=== PATIENT | female | born 1970 | race Caucasian/White ===

== ENCOUNTER 2017-04-20 11:22 | Observation (INO) | payer OTHER ==
[2017-04-20] MEDS ORDERED: Orphenadrine Citrate IV* 30 MG/ML 2 ML VIAL IV ONE (11:54)
[2017-04-20] MEDS ORDERED: Diazepam SYRINGE* 5 MG/ML SYRINGE IV ONE (11:54)
[2017-04-20] MEDS ORDERED: Morphine INJ* 4 MG/ML 1 ML SYRINGE IV ONE (11:54)
[2017-04-20] MEDS ORDERED: Ketorolac INJ* 30 MG/ML 1 ML VIAL IV PUSH ONE (11:54)
[2017-04-20 13:20] LABS: Hematocrit 37 % (35-47); Hemoglobin 12.2 g/dl (12.0-16.0); Mean Corpuscular HGB Conc 34 g/dl (31-36); Mean Corpuscular Hemoglobin 31 pg (27-31); Mean Corpuscular Volume 91 fL (80-97); Mean Platelet Volume 8 um3 (7.4-10.4); Red Blood Count 4.01 10^6/ul (4.0-5.4); Red Cell Distribution Width 13 % (10.5-15); White Blood Count 9.1 10^3/ul (3.5-10.8)
[2017-04-20 13:32] LABS: Albumin 3.5 g/dL (3.2-5.2); BUN/Creatinine Ratio 14.5 (8-20); Calcium 8.6 mg/dL (8.6-10.3); EGFR African American 104.9 (>60); EGFR Non-African American 81.6 (>60); Globulin 2.7 g/dL (2-4); Potassium 3.9 mmol/L (3.5-5.0); Total Bilirubin 0.4 mg/dL (0.2-1.0); Total Protein 6.2 g/dL (6.4-8.9)
--- NOTE | 2017-04-20 13:57 | RAD ---
INDICATION: Back pain COMPARISON: February 16, 2017 TECHNIQUE: AP supine and crosstable lateral imaging submitted . FINDINGS: Bones: There are no acute bony findings. There are there is minor endplate sclerosis and marginal osteophyte formation at the lower 3 lumbar levels. Alignment: Normal Disc spaces: The disc spaces are well-maintained Soft tissues: There are no soft tissue abnormalities. IMPRESSION: MINOR OSTEOARTHRITIC CHANGE.
[2017-04-20] MEDS ORDERED: Dexamethasone IV* 4 MG/ML 1 ML (4 MG) IV SLOW PU ONE (14:21)
[2017-04-20] MEDS: fentaNYL* 50 MCG/ML 2 ML VIAL (100 MCG VIAL) IV SLOW PU PRN ×2 (14:30→16:47)
[2017-04-20 15:02] LABS: C Reactive Protein 7.65 mg/L (< 5.00)
[2017-04-20 17:21] LABS: Urine Bacteria 1+ (Absent); Urine Bilirubin Negative (Negative); Urine Glucose 1+(50 mg/dL) (Negative); Urine Nitrite Negative (Negative)
[2017-04-20] MEDS ORDERED: Acetaminophen TAB* 325 MG PO PRN (17:59)
[2017-04-20] MEDS ORDERED: Dextrose 50% Syringe 50 ML* 25 GM/50 ML SYRINGE IV PUSH PRN (17:59)
[2017-04-20] MEDS ORDERED: Morphine INJ* 4 MG/ML 1 ML SYRINGE IV PRN (17:59)
[2017-04-20] MEDS ORDERED: Ondansetron INJ* 2 MG/ML VIAL IV PRN (17:59)
[2017-04-20] MEDS ORDERED: Dexamethasone IV* 4 MG in NS 0.9% 50 ML* 50 ML IVPB SCH (18:00)
[2017-04-20] MEDS ORDERED: Lidocaine PATCH 5%* 1 PATCH TRANSDERM SCH (18:00)
[2017-04-20] MEDS ORDERED: Albuterol HFA INHALER* 8 gm MDI INH PRN (18:02)
[2017-04-20] MEDS: fentaNYL PATCH 25 MCG/HR TRANSDERM SCH (20:12)
[2017-04-20] MEDS: Dexamethasone IV* 4 MG/ML 1 ML (4 MG) IV SLOW PU SCH (20:15)
[2017-04-20] MEDS ORDERED: Lidocaine Patch REMOVE* 1 NOTE MISC SCH (21:00)
--- NOTE | 2017-04-20 21:18 | HP ---
CC: Dr. Dc; Dr. Reyes * HISTORY AND PHYSICAL: DATE OF ADMISSION: 04/20/17 PRIMARY CARE PROVIDER: Dr. Dc. ATTENDING PHYSICIAN WHILE IN THE HOSPITAL: Dr. Mercedes Baxter * (report dictated by Darnell Cloud NP). CHIEF COMPLAINT: Back pain. HISTORY OF PRESENT ILLNESS: Ms. Lopez is a 46-year-old female patient, carries a history of chronic back pain, diabetes, obesity, hyperlipidemia, asthma, and SELINA. She comes in today with complaints of back discomfort. She says that since October, she has been dealing with back pain off and on. She has no trauma to the back that she knows of. She says that she was able to bear the pain through November and December with [id number] medication. Unfortunately, though, she relocated here to the area, was having knee and back pain, sought care with Dr. Reyes who got her into the pain clinic, who they were going to do epidurals when her sugar has been under control. She had an MRI last month; it did show some protrusion at L4-L5. She, in February and March, has been seeing a physical therapist, a chiropractor, and had been doing quite well until today. She got up, she had no pain this morning. She went to bend down to belt picker a bagful with two binders and she is not sure if she twisted wrong but suddenly when she went to go stand up, she felt worsening back pain mostly on the left side, left lower back that radiated down her buttocks to the posterior aspect of her legs. Described it as a burning, sharp, stabbing pain. She could not stand up because any type of movement, which has caused her back and muscles to spasm. She was able to get the attention of her , and when she came into the hospital, despite rounds of IV medications, steroids , antispasmodics, and muscle relaxants, the patient did continue to have significant amount of pain. Any type of movement, she had worsening pain. She denied any weakness to the lower extremities. She denied any numbness with the exception, she does have numbness in her left toes that has been a chronic sensation from an ankle surgery several years ago. There has been no change in that. She has had no reports of weakness or loss of bowel or bladder problems. She says that she has not had any trauma to the spine or to the back. She came in, the pain management was attempted. She actually initially sought care with Dr. Reyes because she was having knee pain on the same side and Dr. Reyes actually had been helping trying to get her set up for appropriate care with her back. Despite the pain now being controlled, the hospitalist service is asked to evaluate. She denied having any chest pain. No shortness of breath. No fever, chills, or any nausea or vomiting. PAST MEDICAL HISTORY: Significant for: 1. Chronic back pain. 2. Diabetes. 3. Obesity. 4. Hyperlipidemia. 5. Asthma. 6. SELINA. PAST SURGICAL HISTORY: She has had: 1. Ankle surgery. 2. Hysterectomy. MEDICATIONS: Home meds according to the list we are able to obtain includes: 1. Zocor 10 mg daily. 2. Nystatin cream 1 application topically b.i.d. 3. Naproxen 500 mg p.o. b.i.d. as needed. 4. Joint Support 1 capsule p.o. daily. 5. Metformin 1000 mg p.o. twice a day. 6. Magnesium 300 mg p.o. daily. 7. Levemir 50 units subcu b.i.d. 8. NovoLog 7 units subcu before meals. 9. Ibuprofen 200 mg every 4 hours as needed. 10. Vitamin D 400 units p.o. daily. 11. Albuterol 2 puffs inhaled every 4 hours as needed. ALLERGIES TO MEDICATIONS: Include TAPE, CIPRO, and SULFA. FAMILY HISTORY: Her mother had a history of diabetes. Father's history reviewed and noncontributory. SOCIAL HISTORY: She does not smoke, does not drink. Surrogate decision maker is her . REVIEW OF SYSTEMS: There is no documented fever. She denies having any significant weight change. There was no double vision. She denies having any ear discharge. There is no rhinorrhea. She denies having any sore throat. There is no thyroid enlargement. She denied having any chest pain. There is no orthopnea, there is no nocturnal dyspnea. There is no abdominal pain. There is no nausea, no vomiting. There is no dysuria, there is no frequency. No seizure, no loss of consciousness. No pruritus and no skin ulcerations. Review of 14 systems completed, all others negative. PHYSICAL EXAMINATION GENERAL: At this time, Ms. Lopez is a 46-year-old female patient, she is morbidly obese, sitting in the ER stretcher. She does not appear to be in any acute distress. VITAL SIGNS: Reveal blood pressure 128/69, pulse of 60, respirations 18, O2 sat of 100%, temperature 98.4. HEENT: Head is atraumatic and normocephalic. Eyes: EOMs are intact. Sclerae are anicteric and not pale. Throat: Oral mucosa appears to be moist. No oropharyngeal erythema. NECK: Supple. LUNGS: Clear to auscultation bilaterally. No wheezes or rhonchi. HEART: Sounds S1, S2. Regular rate and rhythm. No murmurs, rubs, or gallops. ABDOMEN: Soft, flat, nontender. Bowel sounds present. EXTREMITIES: Pulses were 2+ throughout. She has limited range of motion of the left lower extremity. She has got a positive straight leg test at that extremity about 10 degrees, but she does have 5/5 strength. With dorsi and plantar flexion at the knees, she has 5/5 strength. She also with flexion at the hip has 5/5 strength, but I cannot push the leg down, she is able to resist me, but it does cause her pain when she has resistance into her back. NEUROLOGIC: She is awake, alert, and oriented x3. She has sensation to bilateral lower extremities and she has no numbness or tingling with the exception to the left toes. She again had good plantar and dorsiflexion bilaterally. Good strength bilaterally as well into the lower extremities about 5/5, but there was a positive straight leg test at 10 degrees. No gross focal deficits. SKIN: Her skin was grossly intact. DIAGNOSTIC STUDIES/LAB DATA: Today revealed WBC 9.1, RBC of 4.01, hemoglobin 12.2, hematocrit 37, platelet count 216. Sodium was 136, potassium was 3.9, chloride of 105, bicarb 23, BUN 11, creatinine 0.76, glucose of 218, lactate 1.6 , calcium 8.6. Total bili 0.4, AST 11, ALT 13, alk phos 69. Her albumin was 3.5. Urine showed 2+ leukocyte esterase, 2+ wbc's, 1+ bacteria. She did have a lumbar spine x-ray obtained today, which revealed minor osteoarthritic change. There was a lumbar spine MRI done on the 19 of February which revealed, at the L4- L5, there is a small left paracentral broad disk protrusion indenting the left ventral thecal sac with mild facet hypertrophy, this may just abut the left descending nerve root at this level. Minimal spondylotic ridges noted with minimal left posterolateral disk protrusion, which indents the epidural fat at L5-S1. Old medical records were reviewed. ASSESSMENT AND PLAN: Ms. Lopez is a 46-year-old female patient coming into the ER today with complaints of back pain. Despite pain measures in the ER, the pain is uncontrolled, we were asked to evaluate. She will be admitted under inpatient status for: 1. Lumbar radiculopathy. At this point, there are no focal neurological findings and the problem is that she has mild disk herniation at L4-L5. I think at this point, I am going to go ahead and just put her on steroids. We will follow the sugars closely. Tomorrow, we can try to touch base with our pain management people either Dr. Stafford or Dr. Post to see if they could consult and possibly do an epidural injection. Dr. Reyes has been contacted by the ER, who will evaluate the patient tomorrow and I will repeat the MRI tomorrow morning as it has been 2 months to make sure there has been not any changes. At this point, because there are no focal neurological findings, we are just dealing with radiculopathy. I am going to wait before we get in touch with Neurosurgery unless she has any new symptoms. We will get the MRI and touch base with them tomorrow. I will put her on steroids. I have ordered fentanyl, Lidoderm, p.r.n. Percocet and morphine for pain control, and I have ordered PT evaluation as well. 2. Diabetes. Put her on lispro sliding scale. Continue the Levemir, we will increase as needed. 3. History of hyperlipidemia. Continue statin therapy. 4. Asthma. Continue p.r.n. nebs. 5. Obstructive sleep apnea. Continue CPAP. 6. DVT prophylaxis. High risk, will be placed on heparin subcu. 7. Fluids, electrolytes, and nutrition. She can have a consistent carb diet. 8. Code status. Full code. TIME SPENT: On the admission was approximately 60 minutes, greater than half the time was spent [id number] with the patient obtaining my history and physical; other half time spent going over the plan of care with the patient and implementing the plan of care. I did discuss the plan of care with my attending, Dr. Baxter; she is in agreement. DARNELL CLOUD, PLUMBER APPRENTICE [id number]/[facility] #: [id number] ANGELA
[2017-04-20] MEDS: Heparin VIAL(*) 5000 UNITS/ML VIAL (FIVE THOUSAND) SUBCUT SCH (21:20)
[2017-04-20] MEDS: oxyCODONE/Acetamin 5/325 MG* TAB PO PRN (21:20)
[2017-04-20] MEDS: INSULIN DETEMIR 50 UNIT SUBCUT SCH (21:21)
[2017-04-21] MEDS: oxyCODONE/Acetamin 5/325 MG* TAB PO PRN ×2 (03:49→10:37)
[2017-04-21] MEDS: Dexamethasone IV* 4 MG/ML 1 ML (4 MG) IV SLOW PU SCH ×2 (03:52→12:14)
[2017-04-21] MEDS: Heparin VIAL(*) 5000 UNITS/ML VIAL (FIVE THOUSAND) SUBCUT SCH ×2 (05:50→13:55)
[2017-04-21 05:54] LABS: Hematocrit 39 % (35-47); Hemoglobin 12.8 g/dl (12.0-16.0); Mean Corpuscular HGB Conc 33 g/dl (31-36); Mean Corpuscular Hemoglobin 30 pg (27-31); Mean Corpuscular Volume 90 fL (80-97); Mean Platelet Volume 8 um3 (7.4-10.4); Red Blood Count 4.26 10^6/ul (4.0-5.4); Red Cell Distribution Width 13 % (10.5-15); White Blood Count 13.2 10^3/ul (3.5-10.8)
[2017-04-21 06:05] LABS: BUN/Creatinine Ratio 17.2 (8-20); Calcium 8.9 mg/dL (8.6-10.3); EGFR African American 89.8 (>60); EGFR Non-African American 69.8 (>60); Potassium 4.1 mmol/L (3.5-5.0)
[2017-04-21] MEDS ORDERED: fentaNYL Patch Check Q Shift 1 NOTE SCH (07:00)
--- NOTE | 2017-04-21 07:45 | ED ---
Hay Herndon SooYoung, scribed for Zhen Christopher MD on 04/20/17 at 1150 . Back Pain - HPI Summary HPI Summary: A 46 y/o F presents to ED with c/o acute on chronic back pain since October, worsening onset this AM. Pt states she woke up and felt well, was planning to go to PT and the chiro, but when she bent over to pick something up, she felt stabbing and shooting pains in her lower back. Radiates down to knee of LLE, includes cramping in thigh and groin area, both posteriorly and anteriorly. Pt had an MRI done that showed a protruding disc in L5 area. She sees benny Silva for management. Pt went to pain clinic 3 weeks ago, but did not receive an epidural because her blood sugar was too high. Patient denies any bowel or urinary dysfunction. - History of Current Complaint Chief Complaint: EDBackInjuryPain Stated Complaint: BACK PAIN Hx Obtained From: Patient Onset/Duration: Sudden Onset, Lasting Hours, Still Present Timing: Constant Back Pain Location: Is Diffuse - lower back, LLE Severity Currently: Severe Pain Intensity: 7 Pain Scale Used: 0-10 Numeric Character: Sharp Related History: Previous Back Injury - Allergies/Home Medications Allergies/Adverse Reactions: Allergies Allergy/AdvReac Type Severity Reaction Status Date / Time Adhesive Tape Allergy Swelling Verified 03/15/17 13:46 Ciprofloxacin [From Cipro] Allergy Palpitation Verified 03/15/17 13:46 s Sulfamethoxazole Allergy Palpitation Verified 03/15/17 13:46 w/Trimethoprim s [From Bactrim] Home Medications: Home Medications Insulin ASPART (NF) [Novolog (NF)] 7 unit SUBCUT .BEFORE EVENING MEAL 04/20/17 [ History Confirmed 04/20/17] Insulin Detemir [Levemir Flextouch] 50 unit SUBCUT BID 04/20/17 [History Confirmed 04/20/17] Metformin HCl [Metformin HCl ER] 1,000 mg PO BID 04/20/17 [History Confirmed 05/01] Misc Natural Products [Joint Support] 1 cap PO DAILY 04/20/17 [History Confirmed 04/20/17] Nystatin CREAM* [Nystatin Cream*] 1 applic TOPICAL BID 04/20/17 [History Confirmed 04/20/17] Simvastatin TAB(NF) [Zocor(NF)] 10 mg PO DAILY 04/20/17 [History Confirmed 04/20] PMH/Surg Hx/FS Hx/Imm Hx Previously Healthy: No Endocrine/Hematology History: Reports: Hx Diabetes Cardiovascular History: Denies: Hx Hypertension, Hx Pacemaker/ICD Respiratory History: Reports: Hx Pneumonia, Hx Sleep Apnea - CPAP, Other Respiratory Problems/Disorders - SOB at times, maybe asthma - no dx GI History: Reports: Hx Gastroesophageal Reflux Disease History: Reports: Other Problems/Disorders - incontinence at times, bladder mesh surgery Denies: Hx Renal Disease Musculoskeletal History: Reports: Hx Arthritis, Hx Back Problems, Hx Orthopedic Injury Sensory History: Reports: Hx Contacts or Glasses Denies: Hx Hearing Aid Opthamlomology History: Reports: Hx Contacts or Glasses Neurological History: Reports: Other Neuro Impairments/Disorders - left foot has nerve damage post surgery Psychiatric History: Denies: Hx Panic Disorder - Surgical History Surgery Procedure, Year, and Place: HYSTERECTOMY 04/2016. LEFT ANKLE SURGERY - reconstruction, achilles repair 2006. LAPRASCOPIC FOR ENDOMETRIOSIS 1995. BLADDER SURGERY WITH MESH 1998. toe surgery - Immunization History Date of Tetanus Vaccine: UTD Date of Influenza Vaccine: UTD Infectious Disease History: No Infectious Disease History: Denies: Traveled Outside the [place] in Last 30 Days - Family History Known Family History: Positive: Diabetes Negative: Cardiac Disease, Hypertension - Social History Occupation: Unemployed - OTHER Lives: With Family Alcohol Use: Rare Hx Substance Use: No Substance Use Type: Reports: None Hx Tobacco Use: No Smoking Status (MU): Never Smoked Tobacco Review of Systems Negative: Fever Musculoskeletal: Other - pos: cramping in LLE, groin Positive: Other - pos: lower back pain, radiating LLE All Other Systems Reviewed And Are Negative: Yes Physical Exam - Summary Physical Exam Summary: General: Patient is an obese female with distress secondary to pain Skin: Karns, warm, dry HEAD AND FACE: No signs of trauma. EYES: PERRLA, EOMI x 2. EARS: Hearing grossly intact. MOUTH: Oropharynx within normal limits. NECK: Supple, trachea is midline, no adenopathy, no JVD. CHEST: Symmetric, no tenderness at palpation LUNGS: CTA bilaterally, no rales, rhonchi or wheezing CVS: RRR, no murmur, rub, or gallop ABDOMEN: soft and Nontender without masses, no guarding or rebound. Bowel sounds are active. No Hepato-splenomegaly. No signs of inguinal hernias. BACK: Patient BIB EMS. No signs of trauma, no soft tissue or muscle tenderness , Positive spasm in the Paraspinal muscles of the (lumbar) spine. No masses palpated. Point tenderness at lumbar spine, No CVAT, no flank ecchymosis . No sacroiliac notch tenderness, No saddle anesthesia Straight Leg Raise: positive in the left lower extremity. Patellar reflexes: brisk, symmetric Muscle strength lower extremities. Dorsiflexion/ plantar flexion of ankles. Lower extremities: Femoral, popliteal, posterior tibial, and pedal pulses with in normal, Triage Information Reviewed: Yes Vital Signs On Initial Exam: Initial Vitals Temp Pulse Resp BP Pulse Ox 98.5 F 63 18 140/78 99 04/20/17 11:36 04/20/17 11:36 04/20/17 11:36 04/20/17 11:36 04/20/17 11:36 Vital Signs Reviewed: Yes - [place] Coma Scale Coma Scale Total: 15 Diagnostics - Vital Signs Vital Signs Temp Pulse Resp BP Pulse Ox 04/20/17 11:36 98.5 F 63 18 140/78 99 - Laboratory Result Diagrams: 04/21/17 05:10 04/21/17 05:10 Lab Statement: Any lab studies that have been ordered have been reviewed, and results considered in the medical decision making process. - Radiology L SPINE XR Xray Interpretation: Positive (See Comments) - IMPRESSION: Minor osteoarthritic changes. Radiology Interpretation Completed By: Radiologist Re-Evaluation - Re-Evaluation 1 Re-Evaluation Time: 16:45 Change: Unchanged Comment: Discussing results with pt. Pt still in a lot of pain. Back Pain Course/Dx - Course Assessment/Plan: A 46 y/o F presents to ED with c/o acute on chronic back pain since October, worsening onset this AM. Pt states she woke up and felt well, was planning to go to PT and the chiropractor, but when she bent over to pick something up, she felt stabbing and shooting pains in her lower back. Radiates down to knee of LLE, includes cramping in thigh and groin area, both posteriorly and anteriorly. Pt had an MRI done that showed a protruding disc in L5 area. She sees benny Silva for management. Pt went to pain clinic 3 weeks ago, but did not receive an epidural because her blood sugar was too high. Patient denies any bowel or urinary dysfunction. Test results WNL. Discussed with Dr. Morocho (radiologist) benefits of L-spine CT vs XR and vs MRI , and he recommends XR. Initially, pt was given valium, norflex, toradol and morphine for the pain. Pt continues to have pain. Pt given fentanyl. Pt still continued to have pain, although slightly improved. Discussed case with Dr. Barrow, pt's orthopedist, who recommends admittance for pain control, and he will consult tomorrow AM. He will decide if the patient needs another MRI. At this point, I have no suspicion for cauda equina since pt has no urinary or fecal dysfunction. Pt has no sadddle anasthesia. Pt declined rectal exam. Pt has improved but when pt tries to move, pain increases. Discussed PE and findings with Dr. Baxter, hospitalist, who accepted pt for admittance. Pt is hemodynamically stable and A&Ox3. Patint cntinues to be afebrile. - Diagnoses Differential Diagnosis/HQI/PQRI: Positive: Cauda Equina Syndrome, Herniated Disc , Strain, Sprain Provider Diagnoses: Intractable low back pain - Provider Notifications Discussed Care Of Patient With: Jay Hi - radiologist Time Discussed With Above Provider: 11:57 Instructed by Provider To: Other - recommends XR, not CT. Discharge - Discharge Plan Condition: Stable Disposition: ADMITTED TO [facility] Consult Consult: 1415: benny Silva If pt is unable to ambulate, unable to manage the pain, should admit and doctor will consult tomorrow AM. 1724: Dr. Baxter, hospitalist Will admit pt. The documentation as recorded by the Hay cohen SooYoung accurately reflects the service I personally performed and the decisions made by me, Zhen Christopher MD.
[2017-04-21] MEDS: Insulin LISPRO* 1 UNITS UNIT SUBCUT SCH ×2 (08:29→12:24)
[2017-04-21] MEDS: INSULIN DETEMIR 50 UNIT SUBCUT SCH (08:32)
[2017-04-21] MEDS ORDERED: CMCS:Simvastatin TAB(NF) 10 MG TAB PO SCH (09:00)
--- NOTE | 2017-04-21 11:39 | RAD ---
HISTORY: Low back pain COMPARISONS: February 19, 2017 TECHNIQUE: The following sequences were obtained of the lumbar spine: Sagittal and axial T1- and T2-weighted images, coronal T2-weighted images, and sagittal STIR images. FINDINGS: SPINAL CORD, CONUS, AND CAUDA EQUINA: The visualized spinal cord, conus, and cauda equina are normal in caliber, position, and signal intensity. ALIGNMENT: There is straightening of the lumbar lordosis. VERTEBRAL BODIES: There are stable hemangiomas of L2 and L3. JOINTS: There is mild facet osteoarthritis along the lower lumbar spine MUSCULATURE: There is mild fatty infiltration INTERVERTEBRAL DISCS: There is loss of intervertebral disc height and T2 signal at L4-L5 and L5-S1 AXIAL IMAGES: L3-L4: There is no disc herniation, spinal stenosis, or neuroforaminal narrowing. L4-L5: Again noted is a left lateral recess disc protrusion abutting and slightly displacing the descending left L5 nerve root. This measures 0.5 cm in depth. There is bilateral facet hypertrophy. There is no significant neural foraminal narrowing or central canal stenosis. This is similar in appearance to the previous examination. L5-S1: There is a broad-based disc bulge. There is a left foraminal disc fusion with annular fissure measuring 0.3 centers in depth. This abuts but does not displace the left S1 nerve root. There is bilateral facet hypertrophy. There is no significant neural foraminal narrowing or central canal stenosis. SOFT TISSUES: The visualized soft tissues of the abdomen are unremarkable. OTHER: None. IMPRESSION: 1. STABLE LEFT-SIDED DISC PROTRUSION AT L4-L5, WITH MASS EFFECT UPON THE DESCENDING LEFT-SIDED NERVE ROOT.. 2. SMALL LEFT-SIDED DISC PROTRUSION WITH ANNULAR FISSURE AT L5-S1. 3. NO SIGNIFICANT NEURAL FORAMINAL NARROWING OR CENTRAL CANAL STENOSIS.
[2017-04-21] MEDS ORDERED: oxyCODONE TAB* 5 MG TAB PO PRN (13:14)
[2017-04-21] MEDS: fentaNYL PATCH 25 MCG/HR TRANSDERM SCH (13:51)
[2017-04-21] MEDS ORDERED: Cephalexin CAP* 500 MG PO SCH (14:00)
--- NOTE | 2017-04-21 15:21 | CONS ---
CONSULTATION NOTE: DATE OF CONSULT: 04/21/17 REASON FOR CONSULTATION: Lower back pain. HISTORY OF PRESENT ILLNESS: The patient is a 46-year-old woman with diabetes, obesity, hypercholesterolemia, asthma, obstructive sleep apnea, who has seen me in the clinic in the past for lumbago, some low level radicular left lower extremity pain, and left knee osteoarthritis. She presented to the hospital via ambulance to the emergency department yesterday with severe lower back and left lower extremity pain. The patient was seen by me in the last several months. The patient's left knee pain secondary to arthritis, had improved significantly with physical therapy and her back and left lower extremity radicular pain were her severest complaint at that time. I referred her to the pain clinic for an epidural cortisone injection. The patient saw Dr. Post at the pain clinic and they decided to hold off on an injection due to the patient's high blood glucoses. The patient and Dr. Post agreed that she would control her diabetes better, bring down her blood glucose , before doing an epidural cortisone injection. The patient had been feeling much better, more mobile, with much less back and left lower extremity pain in the last week. Yesterday morning at around 9 a.m., on 04/20/17, the patient bent down to pick something up at home. She felt a twinge in the middle of her back. This was followed by severe pain in the lower back that radiated down the left lower extremity to just distal to her left knee. This pain was incapacitating and the patient did not know what to do for approximately 1-1/2 hours, she could barely move. The patient called my office asking what she should do. I had instructed office staff to have the patient come in to clinic and see me. The patient was told this but unfortunately, the patient was home alone and she literally could not move out of bed secondary to the discomfort. Therefore, the patient called EMS and was taken by ambulance to the emergency department at [facility]. Dr. Christopher in the emergency department saw the patient and telephoned me with a report. The patient had left lower extremity radicular pain as well as back pain, severe, but did not complain of any new onset numbness or weakness and described no bowel or bladder changes with regards to continence. I agreed with the dose of Toradol in the emergency department as well as IV steroids. The patient was admitted for intractable back pain and left lower extremity pain , limiting her ability to ambulate and function independently. The patient states that she has improved since her admission yesterday morning. The patient has been able to walk around her room and walk to the bathroom. The patient denies any weakness to the left lower extremity or right lower extremity. The patient describes just some decreased sensation around the left great toe, dorsal as well as plantar, but the patient describes that as being unchanged since a lateral left ankle surgery, ligament reconstruction in 2006. No change in sensation. The patient states that the pain is less. The patient states she has had no change in her bowel or bladder continence in the last 48 hours. The patient opened up a little bit more than she had in the clinic previously regarding the state of her baseline bladder and bowel continence. The patient states that she has a long history, approximately 1 year, of some bladder incontinence consisting of urgency and leaking. The patient had a history of a bladder mesh procedure 20 years ago and a hysterectomy last year. Physicians, her general practitioners in the past have thought that the leakage and urgency were secondary to poor glycemic control as well as possibly some pelvic musculature wall weakness. The patient also describes some occasional fecal leakage. She has perhaps 2 small episodes per week, but this has not changed recently. The patient has had this for multiple months with no acute change in the past week. The patient denies any perianal numbness or tingling. No recent trauma. PAST MEDICAL HISTORY: 1. Chronic back pain. 2. Diabetes. 3. Obesity. 4. Hyperlipidemia. 5. Asthma. 6. Obstructive sleep apnea. 7. Left knee osteoarthritis. PAST SURGICAL HISTORY: 1. Left ankle surgery. 2. Hysterectomy. 3. Bladder mesh insertion. MEDICATIONS: 1. Zocor. 2. Nystatin cream. 3. Naproxen p.r.n. 4. Metformin. 5. Magnesium. 6. Levemir. 7. NovoLog. 8. Vitamin D. 9. Albuterol. ALLERGIES: CIPROFLOXACIN, SULFA DRUGS, TAPE. SOCIAL HISTORY: The patient does not smoke or drink. The patient moved to the [facility] with her in the last 1 year. REVIEW OF SYSTEMS: The patient denies recent fever, sweat, chills. The patient describes no significant pain about the left knee, improved since when I originally saw her in clinic. Denies perianal numbness. Denies new onset weakness or numbness in either lower extremity. PHYSICAL EXAMINATION: No acute distress, alert and oriented x3, appropriate mood and affect. Appropriate dress and hygiene for an inpatient. The patient is lying supine in her hospital bed. I did not assess the patient's gait, as I did not want to cause her discomfort. Well-coordinated bilateral upper extremities and lower extremities. The patient is obese. Examination of the lower back reveals left lower lumbar paraspinal muscle tenderness to palpation. No midline tenderness to palpation. Some generalized discomfort with flexion, extension and lateral rotation of the lumbar spine. Positive left straight leg raise inducing pain. Bilateral lower extremities have 5/5 motor strength, the L3-S1 myotomes. Fully intact and symmetric sensation in L3-S1 dermatomes with the exception of some decreased sensation, subjective about the left great toe. No clonus bilaterally. Appropriate 2+ reflexes bilateral patellar and Achilles tendon reflexes, symmetric. Left knee exam shows no significant soft tissue swelling or bruising. No clear joint effusion. A rectal exam was performed. A good rectal tone. The patient was able to bear down an increased rectal tone. No perianal numbness. Vital Signs: 97.6 degrees Fahrenheit, heart rate 53, blood pressure 136/72, O2 sat 96%, respirations 16. These are from 7:36 a.m. on April 21. LABORATORY DATA: White blood cell count is 13.2 as of 4 a.m. on 04/21/17. Her glucose at that same drawing was 298. April 20 urinalysis demonstrates 1+ urine bacteria, 2+ leukocyte esterase, negative nitrites. C-reactive protein on April 20 was 7.65. Hemoglobin A1c on April 20 was 8.9. The patient reports this is down from her last reading in the past 2 months which was 9.6 according to the patient. IMAGING: The patient had lumbar spine x-rays obtained yesterday, 04/20/17. I saw the report but not the images. These demonstrated some mild arthritic changes but no fracture or spondylolisthesis. MRI of the lumbar spine performed 04/21/17, today, demonstrates a disk protrusion at L4-5, abutting the L5 nerve root but unchanged since prior MRI. There is a new onset bulging of the L5-S1 intervertebral disk with some abutment of the left S1 nerve root. There is some facet hypertrophy. There is some neuroforaminal narrowing, not severe, worst at the L4-5 level. No clear displacement of nerve roots described by radiologist and I agree with this. No obliteration of the spinal canal at this level by protrusion. No fracture. ASSESSMENT: 1. Left lower extremity radicular pain and lumbago, limiting function. 2. New onset L5-S1 intervertebral disk protrusion. 3. Chronic L4-5 intervertebral disk protrusion. 4. Urinary tract infection. PLAN: 1. I spoke to the patient about her MRI imaging and her current symptoms. In the short term, I think that the patient is clear to be discharged home whenever she is comfortable and functional enough to do so, showing that she can get up out of bed and walk with an assistive device adequately. 2. I told her that generally radicular pain and back pain are worse for the 48 hours after a disk herniation and while I would recommend bed rest for those 48 hours, afterwards I recommend the patient to be as active as possible and I recommend this for this patient. 3. I recommend that the patient be discharged on oral steroids such as a Medrol Dosepak, if the medical team is comfortable with the bump in her blood sugars and can design a diabetes med regimen that will enable her to compensate for an increase in blood sugars for up to 5 days after these steroids are given. 4. Otherwise, the patient's activity is as tolerated, weightbearing as tolerated, assistive device as needed. She can return to work when she feels able. 5. In terms of medium term treatment for these disk protrusions and her back and radicular pain, if they do not fully disappear, the patient's options are an epidural cortisone injection at the pain clinic, continued physical therapy, and/or a lumbar spine surgery with microdiskectomy done by Dr. Juárez. Dr. Juárez would be appropriate to consult as an outpatient if the patient decides she might be interested in surgery. 6. The patient appears to have a urinary tract infection and I would leave it to the medical service to decide whether to treat that with antibiotics. 7. The patient can follow up with me in clinic for any of her musculoskeletal complaints. 8. I discussed my assessment and plan with the Hospitalist team. [id number]/[facility] #: [id number] ANGELA
[2017-04-21 15:58] VITALS: BP 118/67
[2017-04-21] MEDS ORDERED: Insulin LISPRO* 1 UNITS UNIT SUBCUT SCH (17:00)
--- NOTE | 2017-04-21 22:04 | DS ---
CC: Hamlet Reyes MD; Avelino Dc MD DISCHARGE SUMMARY: DATE OF ADMISSION: DATE OF DISCHARGE: 04/21/17 HOSPITAL COURSE: This 46-year-old woman was admitted with a chief complaint of back pain. She said she has had this off and on since October 2016. There is no significant incident of trauma that s he can recall. She was taking over-the- counter medicine in November and December of this year. She recently moved here. She saw Dr. Reyes, who referred her to the Pain Clinic. They are going to w ait till her blood sugar was under better control before doing epidural injections. An MRI done las t month showed some protrusion at L4-L5. She had another MRI here, which showed stable L4-L5 protru harrison. She was given some dexamethasone. She had the last dose at noon on the day of discharge. Mahamed farmer had significant improvement overnight and was able to walk to the bathroom without assistance, alt cielo she said she needed someone to push to get her up off the bed. She really does not use much p ain medications. She wanted to try, just using ibuprofen at home. I did give her prescription for 40 oxycodone 5 mg, I thought this might be necessary at different times of the day and I think, she will be willing to take it once or twice a day. She was concerned about addiction. Her blood sugars did go up significantly with the dexamethasone, I am not going to give her anymore steroids as an outpatient. I think in a day or two, glycemic control will be much better. In the eantime, I gave her sliding scale to use with her NovoLog. She will keep on her usual dose of Levem ir 50 units twice a day. She will take between 7 and 15 units of NovoLog for 4 times a day dependin g on her blood sugar. Dr. Reyes saw her and felt that she could be managed as an outpatient without any further interven tion at this time. He will follow her up as well. FINAL DIAGNOSES: 1. L4-L5 disk protrusion. 2. Diabetes. 3. Obesity. 4. Hyperlipidemia. 5. Asthma. 6. Obstructive sleep apnea. DISCHARGE MEDICATIONS: 1. Acetaminophen 650 mg every 4 hours p.r.n. 2. Cephalexin 500 mg t.i.d. for possible UTI. 3. NovoLog insulin 7 to 15 units 4 times a day depending on fingerstick blood sugar. 4. Oxycodone 5 mg every 4 hours p.r.n. 5. Albuterol inhaler 2 puffs every 4 hours p.r.n. 6. Vitamin D 400 units daily. 7. Naproxen 500 units b.i.d. p.r.n. 8. Magnesium 300 mg daily. 9. Ibuprofen 200 mg every 4 hours p.r.n. 10. Simvastatin 10 mg daily. 11. Levemir 50 units b.i.d. 12. Nystatin cream apply topically twice daily. 13. Metformin 1000 mg b.i.d. 14. Joint Support capsule daily. [id number]/[facility] #: [id number]
== END 2017-04-21 16:45 | disposition home or self-care (01) ==
LOC: ED 11:22 → MED 18:35
PROVIDERS: ADMIT Nurse Practitioner Family; ATTEND Internal Medicine
DX: M51.16 Intervertebral disc disorders with radiculopathy, lumbar region (principal); M54.5 Low back pain; G89.29 Other chronic pain; E11.9 Type 2 diabetes mellitus without complications; E78.5 Hyperlipidemia, unspecified; J45.909 Unspecified asthma, uncomplicated; G47.33 Obstructive sleep apnea (adult) (pediatric); E66.9 Obesity, unspecified; Z88.1 Allergy status to other antibiotic agents; Z88.2 Allergy status to sulfonamides; Z79.899 Other long term (current) drug therapy; Z79.4 Long term (current) use of insulin
CPT/HCPCS: 36415; 72100; 72148; 80048; 80053; 81003; 81015; 83036; 83605; 85025; 85610; 86140; 87086; 94660; 96372; 96374; 96375; 96376; 99284; A9270-GY; G0378; J1100; J1644; J1885; J2270; J2360; J3010; J3360

== ENCOUNTER → 2018-09-29 20:49 | Emergency (ER) | payer OTHER ==
[~2018-09-29 20:49] MED LIST: Iodixanol* (CONTRAST) 320 MG/ML 100 ML SDV IV ONE; Ketorolac INJ* 30 MG/ML 1 ML VIAL IV ONE; NS 0.9% 1000 ML* 1,000 ML IV ONE
--- OUTSIDE RECORDS SUMMARY | 2018-09-29 21:04 | XMS REPORT ---
:1970 External Reference #:[id number] Author Organization [employer] Address [address] [place] [address] [place] [address] Phone [phone] Care Team Providers Name Role Phone Ayan Pat MD Primary Care Physician Unavailable Payers Type Date Identification Numbers Payment Provider Subscriber Commercial Policy Number: [id number] [employer] Number: [id number] [address] PayID: [id number] [place] [address] Problems Date Description Provider Status Onset: 09/01/2017 Obstructive sleep apnea syndrome Skye Dang DNP, RN, Active HVAC R TECH-BC Onset: 09/01/2017 Inadequate sleep hygiene Skye Dang DNP, RN, Active HVAC R TECH-BC Onset: 09/01/2017 Gastroesophageal reflux disease Skye Dang DNP, KEITH, Active HVAC R TECH-BC Onset: 03/07/2018 Peroneal tendinitis, left leg Rocky Carranza MD Active Onset: 03/07/2018 Tendon contracture Rocky Carranza MD Active Onset: 03/07/2018 Achilles bursitis Rocky Carranza MD Active Family History Date Family Member(s) Problem(s) Comments General Diabetes Type II Mother Diabetes Type II Social History Type Date Description Comments Lives With Spouse 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 Cigarette Use Never Smoked Cigarettes ETOH Use Occasionally consumes alcohol Smoking Patient has never smoked Recreational Drug Use Denies Drug Use Daily Caffeine Occasional soda, coffee or tea Exercise Type/Frequency Exercises regularly Exercise Type/Frequency Exercises at a health club 4 times a week Allergies, Adverse Reactions, Alerts Date Description Reaction Status Severity Comments 11/19/2016 Cipro active tacchycardia 11/19/2016 Bactrim active red, flushed 09/01/2017 Ascorbic Acid / Beta Carotene / Urticaria active Copper Sulfate / Selenite / Vitamin E / Zinc Oxide 09/01/2017 Tape Urticaria active 09/13/2018 Benzyl Alcohol active itching 09/13/2018 Propylene Glycol active itching rash 09/13/2018 Chromium active itching rash Medications Medication Date Status Form Strength Qnty SIG Indications Ordering Provider Levemir / Active Solution 100Unit/ML 50 units Unknown 0000 twice daily Metformin HCL / Active Tablets 1000mg 1 by mouth Unknown 0000 twice a day Albuterol / Active Tablets 2mg 2 puffs Unknown Sulfate 0000 four times a day as needed Clobetasol / Active Ointment 0.05% as Unknown Propionate 0000 directed Pantoprazole / Active Tablets DR 20mg 1 by mouth Unknown Sodium 0000 every day Ciclopirox / Active Solution 8% as Unknown 0000 directed Humalog / Active Solution 100Unit/ML SSC 3-10 Unknown Kwikpen 0000 Pen-Inject untis Simvastatin / Active Tablets 10mg take 1 Unknown 0000 tablet by mouth at bedtime Nystatin / Active Ointment 133272Cqyl apply to Unknown 0000 /GM affected area twice daily Vitamin D / Active Capsules 1 by mouth Unknown (Ergocalcifero 0000 every day l) Naproxen 01/11/ Hx Tablets 500mg 90tabs 1 by mouth M25.562 Hamlet F 2016 twice a Amy, day as MD needed pain Vitamin B-12 / Hx Tablets 500mcg 1 by mouth Unknown 0000 every day Natural Vitamin D / Hx Capsules 400Unit 1 by mouth Unknown (Cholecalcifer 0000 every day ol) Magnesium / Hx Capsules 300mg otc once a Unknown 0000 day Ibuprofen / Hx Capsules 200mg as needed Unknown 0000 Metformin HCL / Hx Tablets ER 1000mg Take 1 Unknown ER (Osm) 0000 24HR Tablet By Mouth Twice A Day Novolog / Hx Solution 100Unit/ML Inject Unknown Flexpen 0000 Pen-Inject 7-15 Units Using Sliding Scale Before Evening Meal *Hold If Sug Cinnamon // Hx Capsules 500mg 2 by mouth Unknown 0000 every day Cranberry // Hx Tablets 500mg 2 tabs po Unknown 0000 daily Probiotic / Hx Capsules 2 by mouth Unknown 0000 every day Meclizine HCL / Hx Tablets 25mg 1 tablet Unknown 0000 every 8 hours as needed for vertigo Medications Administered in Office Medication Date Status Form Strength Qnty SIG Indications Ordering Provider Depomedrol Administered Injection Hamlet F 40MG 017 MD Amy Vital Signs Date Vital Result Comment 09/15/2018 Height 68 inches 5'8" Weight 316.00 lb Heart Rate 72 /min BP Systolic Sitting 122 mmHg BP Diastolic Sitting 86 mmHg Respiratory Rate 18 /min Body Temperature 98.3 F BMI (Body Mass Index) 48.0 kg/m2 03/07/2018 Height 68 inches 5'8" Weight 315.00 lb BP Systolic 118 mmHg BP Diastolic 84 mmHg Respiratory Rate 18 /min Body Temperature 97.3 F Pain Level 6 BMI (Body Mass Index) 47.9 kg/m2 11/04/2017 Height 68 inches 5'8" Weight 312.00 lb Heart Rate 84 /min Respiratory Rate 18 /min Body Temperature 97.8 F Pain Level 8 BMI (Body Mass Index) 47.4 kg/m2 09/01/2017 Height 68 inches 5'8" Weight 308.00 lb Heart Rate 58 /min BP Systolic Sitting 138 mmHg Lue large cuff BP Diastolic Sitting 88 mmHg Lue large cuff Respiratory Rate 14 /min O2 % BldC Oximetry 98 % BMI (Body Mass Index) 46.8 kg/m2 Neck Circumference in inches 18 02/24/2017 Height 68 inches 5'8" Weight 205.00 lb Heart Rate 64 /min BP Systolic 126 mmHg BP Diastolic 75 mmHg Body Temperature 97.8 F Pain Level 7 BMI (Body Mass Index) 31.2 kg/m2 02/16/2017 Height 68 inches 5'8" Weight 305.00 lb Heart Rate 85 /min BP Systolic 131 mmHg BP Diastolic 88 mmHg Respiratory Rate 20 /min Body Temperature 97.8 F Pain Level 6 BMI (Body Mass Index) 46.4 kg/m2 01/11/2017 Height 68 inches 5'8" Weight 310.00 lb Heart Rate 86 /min Respiratory Rate 20 /min Pain Level 4 BMI (Body Mass Index) 47.1 kg/m2 11/30/2016 Height 69 inches 5'9" Weight 315.00 lb Pain Level 6 BMI (Body Mass Index) 46.5 kg/m2 11/19/2016 Height 68 inches 5'8" Weight 315.00 lb BP Systolic Recheck 132 mmHg BP Diastolic Recheck 90 mmHg Respiratory Rate 21 /min Pain Level 8 BMI (Body Mass Index) 47.9 kg/m2 Results Description No Information Procedures Date CPT Code Description Status 11/22/2017 28242 Allergy Test, Patch Or Application Completed 11/04/2017 85186 Destruction Of Benign Lesions Any Method 1-14 lesions Completed 11/19/2016 16153 Inject/Drain Joint/Bursa Major W/O US Completed Encounters Type Date Location Provider CPT E/M Dx Office Visit 03/07/2018 8:00a [facility] [place] [address] M76.72 C.M.ATayo M76.61 M67.01 Office Visit 11/26/2017 9:30a [facility] [place] [address] L23.9 Office Visit 11/24/2017 8:20a [facility] [place] [address] L23.9 Office Visit 11/04/2017 11:00a [facility] [place], [address] M76.61 C.M.A. M.D. Office Visit 11/04/2017 10:10a [facility] [place] [address] L90.0 R60.0 D22.62 L23.9 L82.1 L71.8 L28.1 R20.8 L29.8 R58 Z78.9 L53.8 Office Visit 09/01/2017 9:00a [facility] Skye Dang, 80105 G47.33 [facility] ELISABETH, RN, HVAC R TECH- Z72.821 K21.9 Office Visit 04/21/2017 10:43a [facility], 10501 M51.17 Ronnell CHENG M51.16 N39.0 Office Visit 04/21/2017 8:26a [facility] Ronal Gunderson, 71495 M54.16 Hospitalists MAlejandro E11.8 E66.01 E78.5 Office Visit 04/20/2017 8:26a [facility] Paul Pedro Luis, 21264 M54.16 Assoc,pc Hospitalists N.PTayo E11.8 E66.01 E78.5 Office Visit 02/24/2017 2:45p [facility], 10655 M54.16 Ronnell CHENG M17.12 Office Visit 02/16/2017 2:15p [facility] [place] Amy [address]89 M17.12 Ronnell CHENG M54.16 Office Visit 01/11/2017 3:30p [facility] Re[facility] [address]9922 M25.562 Of Ronnell CHENG M17.12 R25.2 Office Visit 11/30/2016 2:45p [facility] Re[facility] 47961 M25.562 Of Ronnell CHENG M17.12 R25.2 Office Visit 11/19/2016 1:00p [facility] [place] [address]87 S83.242A Of Ronnell Reyes MD M25.562 M17.12 Plan of Care 09/15/2018 - Darnell Cortes MDK80.10 Calculus of gallbladder w chronic cholecyst w/o obstructionInstructions:call me if you change your mind about jqeewtnF36.01 Morbid (severe) obesity due to excess caloriesFollow up:at [facility] oqebzraY10.9 Gastro-esophageal reflux disease without esophagitis
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
[2018-09-29 22:08] LABS: ABS Basophils 0.1 10^3/ul (0-0.2); ABS Eosinophils 0.1 10^3/ul (0-0.6); ABS Lymphocytes 1.8 10^3/ul (1.0-4.8); ABS Monocytes 0.6 10^3/ul (0-0.8); ABS Neutrophils 8.3 10^3/ul (1.5-7.7); ABS Nucleated RBC 0 10^3/ul; Eosinophil % 1.2 % (0-6); Hematocrit 41 % (35-47); Lymphocyte % 16.8 % (25-47); Mean Corpuscular HGB Conc 34 g/dl (31-36); Mean Corpuscular Hemoglobin 31 pg (27-31); Mean Corpuscular Volume 91 fL (80-97); Mean Platelet Volume 7.9 fL (7.4-10.4); Nucleated Red Blood Cells % 0; Platelet Count 225 10^3/ul (150-450); Red Blood Count 4.56 10^6/ul (4.00-5.40); Red Cell Distribution Width 14 % (10.5-15); White Blood Count 10.9 10^3/ul (3.5-10.8)
[2018-09-29 22:13] LABS: INR 0.93 (0.77-1.02)
[2018-09-29 22:30] LABS: EGFR Non-African American 58.9 (>60)
[2018-09-29 22:38] LABS: Urine Appearance Clear; Urine Blood Negative (Negative); Urine Color Yellow; Urine Ketones Negative (Negative); Urine Protein Negative (Negative); Urine Specific Gravity 1.023 (1.010-1.030); Urine Urobilinogen Negative (Negative)
[2018-09-30 00:29] VITALS: BP 153/79
== END | disposition home or self-care (01) ==
LOC: ED 20:49
DX: S80.00XA Contusion of unspecified knee, initial encounter (principal); M54.2 Cervicalgia; R07.9 Chest pain, unspecified; R10.9 Unspecified abdominal pain; V49.9XXA Car occupant (driver) (passenger) injured in unspecified traffic accident, initial encounter; Y93.9 Activity, unspecified; Y92.410 Unspecified street and highway as the place of occurrence of the external cause
CPT/HCPCS: 36415; 70450; 71260; 72125; 74177; 80053; 81003; 82150; 82550; 83605; 83690; 84702; 85025; 85610; 96374; 99283; J1885; Q9967

== ENCOUNTER 2018-12-21 15:19 | Emergency (ER) | payer OTHER ==
--- OUTSIDE RECORDS SUMMARY | 2018-12-21 15:42 | XMS REPORT | Continuity of Care Document ---
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 Ricco Bello FNP Primary Care Physician Unavailable Payers Type Date Identification Numbers Payment Provider Subscriber Policy Number: [id number] Brad Lopez PayID: [id number] [address] [place] [address] Advance Directives Description No Information Available Problems Date Description Provider Status Onset: 09/13/2018 Morbid obesity Radha Russell PA-C Active Onset: 09/13/2018 Gallstone Radha Russell PA-C Active Onset: 09/13/2018 Right upper quadrant pain Radha Russell PA-C Active Onset: 08/04/2018 Gastroesophageal reflux disease Radha Russell PA-C Active Onset: 08/04/2018 Constipation Radha Russell PA-C Active Onset: 08/04/2018 Abdominal pain Radha Russell PA-C Active Family History Description No Information Available Social History Type Date Description Comments Sex Unknown ETOH Use Occasionally consumes alcohol Tobacco Use Start: Unknown Patient has never smoked Smoking Status Reviewed: 11/17/18 Patient has never smoked Allergies, Adverse Reactions, Alerts Date Description Reaction Status Severity Comments 05/27/2018 Benzyl Alcohol Itching Active Moderate 05/27/2018 Chromium Itching Active Moderate 05/27/2018 Propylene Glycol Edema, Itching Active Moderate 05/07/2017 Bactrim Hives, Rash, Tachycardia Active 05/07/2017 Cipro Hives, Rash, Tachycardia Active 05/07/2017 Vitamin E Rash Active Medications Medication Date Status Form Strength Qnty SIG Indications Ordering Provider Pantoprazole 08/04/ Active Tablets DR 20mg 90tab 1 by mouth R10.10 Radha Sodium 2018 s daily at L. least 30min [place] prior to , PA-C breakfast Albuterol / Active Nebulizer (2.5mg/3M Inhale 3 mL 3 Unknown Sulfate 0000 L) 0.083% times a day by nebulization route. Ciclopirox / Active Kit 8% as needed Unknown Treatment 0000 Clobetasol / Active Ointment 0.05% Apply To Unknown Propionate 0000 Affected Areas as Needed Humalog / Active Solution 100Unit/M as directed Unknown Kwikpen 0000 Pen-Inject L up to 60u tdd Levemir / Active Solution 100Unit/M 50u Am and Unknown Flexpen 0000 Pen-Inject L 50u PM tdd 100u Meclizine HCL / Active Tablets 25mg Take 1 tablet Unknown 0000 3 times a day by oral route as needed. Metformin HCL / Active Tablets ER 500mg metformin ER Unknown ER 0000 24HR 500 mg tablet,extend ed release 24 hr Nystatin / Active Cream [id number] as needed Unknown 0000 t/GM Simvastatin / Active Tablets 10mg 1 pill daily Unknown 0000 Doxycycline / Hx Tablets 100mg Take 1 tablet Unknown Hyclate 0000 - twice a day 08/04/ by oral route 2018 for 5 days. Immunizations CPT Code Status Date Vaccine Lot # [id number] Given 07/27/2016 Influenza Virus Vaccine, Quadrivalent, Split, Preservative Free 20971 Given 04/15/2009 Pneumovax 78994 Given 11/15/2008 Tetanus, Diphtheria Toxoids/Acellular Pertussis Vaccine 7 Or > Vital Signs Date Vital Result Comment 11/17/2018 9:25am Height 68 inches 5'8" Weight 311.00 lb BMI (Body Mass Index) 47.3 kg/m2 09/13/2018 9:33am Height 68 inches 5'8" Weight 315.00 lb BMI (Body Mass Index) 47.9 kg/m2 08/04/2018 9:11am Height 68 inches 5'8" Weight 320.00 lb BP Systolic 181 mmHg BP Diastolic 109 mmHg Heart Rate 78 /min BMI (Body Mass Index) 48.7 kg/m2 Results Test Date Facility Test Result H/L Range Note Laboratory test [facility] [place] Negative Negative 1 finding 8 Pylori Antigen- Stool CBC W/[facility] White Blood 8.5 3/UL 4.8-10.8 Differential(!) 8 [address] [facility] [place] [address] Auto CNT [phone] RBC Red Blood Count 4.59 X106/UL 4.20-6.20 Hemoglobin Blood 13.1 g/dL 12.0-18.0 Hematocrit 42.8 % 35-52 MCV (Corpuscular Volume) 93.3 FL 79-97 MCH (Corpuscular Hemoglobin) 28.4 pg 27-31 MCHC (Corpuscular Hemog Conc) 30.5 g/dL Low 32.0-36.0 RDW 13.7 % 10.5-15.0 Platelet Count Blood Auto CNT 255 X103/UL 150-450 MPV 7.0 FL Low 7.4-10.4 Lymph% 29.7 % 20.0-45.0 [place]% 4.3 % 1.0-9.0 Neutrophil % 66.0 % 38.0-83.0 Absolute Lymphocytes 2.5 X103/UL 1.0-4.8 Absolute Monocytes 0.4 X103/UL 0.0-0.8 Absolute Neutrophils 5.6 X103/UL 1.5-7.7 CMP(!) 08/04/2018 [facility] Sodium(!) 137 mEq/L 134- 149 [address] [place] [address] [phone] Potassium(!) 4.1 mEq/L 3.6-5.5 Chloride Serum/Plasma(!) 106 mEq/L 94-112 Carbon Dioxide Ser/Plasm(!) 27 mEq/L 21-33 BUN - Urea Nitrogen(!) 14 mg/dL 6-24 Calcium Ser/Plasma Mass/Vol(!) 8.6 mg/dL 8.6-10.2 Creatinine Serum Mass/Vol(!) 0.8 mg/dL 0.5-1.4 Glucose Serum(!) 175 mg/dL High 70-105 BUN/Creatinine Ratio(!) 17.5 RATIO 8.0-36 Albumin Serum/Plasma(!) 3.9 g/dL 3.5-5.2 Alkaline Phosphatase(!) 93 U/L 39-117 Bilirubin Total Mass/Vol 0.6 mg/dL 0.2-1.3 Ast - Sgot 11 U/L 5-34 Alt - SGPT 15 U/L 10-40 Protein Total 6.0 g/dL Low 6.2-8.1 2 Laboratory test 08/04/2018 [facility] Esr Sedimentation 30 MM High 0-20 [address] Rate(!) [place] [address] [phone] C-Reative Protein 7.9 High <5.0 Laboratory test 05/27/2018 N2N/CCD Import C reactive 12.99 mg/L High < 8.01 finding protein CBC W Auto 05/27/2018 N2N/CCD Import abs basophils 0 10_3/uL 0-0.2 Differential panel - Blood abs eosinophils 0.2 10_3/uL 0-0.6 abs lymphocytes 4.4 10_3/uL 1.0-4.8 abs monocytes 0.6 10_3/uL 0-0.8 abs neutrophils 7.1 10_3/uL 1.5-7.7 abs nucleated RBC 0 10_3/uL basophil % 0.4 % 0-2 eosinophil % 1.9 % 0-6 granulocyte % 57.4 % 38-83 hematocrit 41 % 35-47 hemoglobin 13.8 g/dL 12.0-16.0 lymphocyte % 35.3 % 25-47 mean corpuscular HGB conc 34 g/dL 31-36 mean corpuscular hemoglobin 31 pg 27-31 mean corpuscular volume 91 fL 80-97 mean platelet volume 8.4 um3 7.4-10.4 monocyte % 5.0 % 0-7 nucleated red blood cells % 0.1 platelet count 234 10_3/uL 150-450 red blood count 4.50 10_6/uL 4.00-5.40 red cell distribution width 14 % 10.5-15 white blood count 12.4 10_3/uL High 3.5-10.8 Specimen drawn [Date and 05/27/2018 N2N/CCD Import Patient tolerated well? Yes time] of Serum or Plasma Hemoglobin A1c 05/27/2018 N2N/CCD Import A1c 7.8 measurement device panel 1 Test Performed by: [facility], [place] [address] [place] [address] 2 TOTAL PROTEIN CONFIRMED BY REPEAT ANALYSIS.MW Procedures Date Code Description Status 08/24/2017 79683 Influenza Virus Vaccine, Quadrivalent (Cciiv4), Derived Completed From Cell Encounters Type Date Location Provider Dx Diagnosis Office Visit 09/13/2018 [facility]enter[facility] Radha Nicole R10.11 Right upper 9:30a [facility] quadrant pain K21.9 Gastro-esophageal reflux disease without esophagitis K80.20 Calculus of gallbladder w/o cholecystitis w/o obstruction K80.80 Other cholelithiasis without obstruction E66.01 Morbid (severe) obesity due to excess calories Office Visit 08/04/2018 [facility]astroenter[facility] Radha Nicole R10.11 Right upper 9:00a [facility] quadrant pain R10.10 Upper abdominal pain, unspecified K21.9 Gastro-esophageal reflux disease without esophagitis K59.00 Constipation, unspecified Plan of Treatment No Information Available
--- OUTSIDE RECORDS SUMMARY | 2018-12-21 15:42 | XMS REPORT | Continuity of Care Document ---
:1970 External Reference #:[id number] Author Name Cayden Allred Care Team Providers Name Role Phone Ayan Pat MD Primary Care Physician Unavailable Payers Type Date Identification Numbers Payment Provider Subscriber Policy Number: [id number] [employer] Number: [id number] [address] PayID: [id number] [place] [id number] Effective: 2018 Policy Number: [employer] Radha Lopez [id number] Onset: 2018 PayID: [id number] Advance Directives Description No Information Available Problems Date Description Provider Status Onset: 09/01/2017 Obstructive sleep apnea syndrome Skye Dang DNP, RN, Active OPEN DEVELOPER OPERATOR-BC Onset: 09/01/2017 Inadequate sleep hygiene Skye Dang DNP, RN, Active OPEN DEVELOPER OPERATOR-BC Onset: 09/01/2017 Gastroesophageal reflux disease Skye Dang DNP, RN, Active OPEN DEVELOPER OPERATOR-BC Onset: 03/07/2018 Peroneal tendinitis, left leg Rocky Carranza MD Active Onset: 03/07/2018 Tendon contracture Rocky Carranza MD Active Onset: 03/07/2018 Achilles bursitis Rocky Carranza MD Active Family History Date Family Member(s) Problem(s) Comments General Diabetes Type II Mother Diabetes Type II Social History Type Date Description Comments Sex Unknown Lives With Spouse 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 Tobacco Use Start: Unknown Never Smoked Cigarettes Smoking Status Reviewed: 11/23/18 Never Smoked Cigarettes ETOH Use Occasionally consumes alcohol Tobacco Use Start: Unknown Patient has never smoked Recreational Drug Use Denies Drug Use Exercise Type/Frequency Exercises regularly Exercise Type/Frequency Exercises at a health club 4 times a week Allergies, Adverse Reactions, Alerts Date Description Reaction Status Severity Comments 11/19/2016 Cipro Active tacchycardia 11/19/2016 Bactrim Active red, flushed 09/01/2017 Ascorbic Acid / Beta Carotene / Urticaria Active Copper Sulfate / Selenite / Vitamin E / Zinc Oxide 09/01/2017 Tape Urticaria Active 09/13/2018 Benzyl Alcohol Active itching 09/13/2018 Propylene Glycol Active itching rash 09/13/2018 Chromium Active itching rash Medications Medication Date Status Form [...] mouth at bedtime Nystatin / Active Ointment 220217Pasw apply to Unknown 0000 /GM affected area twice daily Vitamin D / Active Capsules 1 by mouth Unknown (Ergocalcifero 0000 every day l) Ibuprofen 200 / Active Unknown 0000 Naproxen 01/11/ Hx Tablets 500mg 90tabs 1 by mouth M25.562 [place]ente 2016 twice a Amy, day as MD needed pain Vitamin B-12 00// Hx Tablets 500mcg 1 by mouth Unknown 0000 every day Natural Vitamin D 00// Hx Capsules 400Unit 1 by mouth Unknown (Cholecalcifer 0000 every day ol) Magnesium / Hx Capsules 300mg otc once a Unknown 0000 day Ibuprofen // Hx Capsules 200mg as needed Unknown 0000 Metformin HCL // Hx Tablets ER 1000mg Take 1 Unknown ER (Osm) 0000 24HR Tablet By Mouth Twice A Day Novolog / Hx Solution 100Unit/ML Inject Unknown Flexpen 0000 Pen-Inject 7-15 Units Using Sliding Scale Before Evening Meal *Hold If Sug Cinnamon / Hx Capsules 500mg 2 by mouth Unknown 0000 every day Cranberry / Hx Tablets 500mg 2 tabs po Unknown 0000 daily Probiotic / Hx Capsules 2 by mouth Unknown 0000 every day Meclizine HCL / Hx Tablets 25mg 1 tablet Unknown 0000 every 8 hours as needed for vertigo Medications Administered in Office Medication Date Status Form Strength Qnty SIG Indications Ordering Provider Depomedrol Administered Injection Hamlet F 40MG 017 MD Amy Immunizations Description No Information Available Vital Signs Date Vital Result Comment 11/23/2018 10:07am Height 68 inches 5'8" Weight 316.00 lb Heart Rate 52 /min Respiratory Rate 18 /min Body Temperature 98.0 F Pain Level 7 BMI (Body Mass Index) 48.0 kg/m2 09/15/2018 11:14am Height 68 inches 5'8" Weight 316.00 lb Heart Rate 72 /min BP Systolic Sitting 122 mmHg BP Diastolic Sitting 86 mmHg Respiratory Rate 18 /min Body Temperature 98.3 F BMI (Body Mass Index) 48.0 kg/m2 03/07/2018 8:16am Height 68 inches 5'8" Weight 315.00 lb BP Systolic 118 mmHg BP Diastolic 84 mmHg Respiratory Rate 18 /min Body Temperature 97.3 F Pain Level 6 BMI (Body Mass Index) 47.9 kg/m2 11/04/2017 11:28am Height 68 inches 5'8" Weight 312.00 lb Heart Rate 84 /min Respiratory Rate 18 /min Body Temperature 97.8 F Pain Level 8 BMI (Body Mass Index) 47.4 kg/m2 09/01/2017 9:12am Height 68 inches 5'8" Weight 308.00 lb Heart Rate 58 /min BP Systolic Sitting 138 mmHg Lue large cuff BP Diastolic Sitting 88 mmHg Lue large cuff Respiratory Rate 14 /min O2 % BldC Oximetry 98 % BMI (Body Mass Index) 46.8 kg/m2 Neck Circumference in inches 18 02/24/2017 3:11pm Height 68 inches 5'8" Weight 205.00 lb Heart Rate 64 /min BP Systolic 126 mmHg BP Diastolic 75 mmHg Body Temperature 97.8 F Pain Level 7 BMI (Body Mass Index) 31.2 kg/m2 02/16/2017 2:34pm Height 68 inches 5'8" Weight 305.00 lb Heart Rate 85 /min BP Systolic 131 mmHg BP Diastolic 88 mmHg Respiratory Rate 20 /min Body Temperature 97.8 F Pain Level 6 BMI (Body Mass Index) 46.4 kg/m2 01/11/2017 3:26pm Height 68 inches 5'8" Weight 310.00 lb Heart Rate 86 /min Respiratory Rate 20 /min Pain Level 4 BMI (Body Mass Index) 47.1 kg/m2 11/30/2016 3:06pm Height 69 inches 5'9" Weight 315.00 lb Pain Level 6 BMI (Body Mass Index) 46.5 kg/m2 11/19/2016 1:34pm Height 68 inches 5'8" Weight 315.00 lb BP Systolic Recheck 132 mmHg BP Diastolic Recheck 90 mmHg Respiratory Rate 21 /min Pain Level 8 BMI (Body Mass Index) 47.9 kg/m2 Results Description No Information Available Procedures Date Code Description Status 11/22/2017 58063 Allergy Test, Patch Or Application Completed 11/04/2017 92921 Destruction Of Benign Lesions Any Method 1-14 lesions Completed 11/19/2016 34436 Inject/Drain Joint/Bursa Major W/O US Completed Encounters Type Date Location Provider Dx Diagnosis Office Visit 09/15/2018 Surgical Darnell Cortes, K80.10 Calculus of 10:45a [facility] , FACS gallbladder w chronic cholecyst w/o obstruction E66.01 Morbid (severe) obesity due to excess calories K21.9 Gastro-esophageal reflux disease without esophagitis Office Visit 03/07/2018 8:00a Orthopedic Rocky Carranza M76.72 Peroneal Services Of tendinikarley, left C.M.A. leg M76.61 Achilles tendinitis, right leg M67.01 Short Achilles tendon (acquired), right ankle Office Visit 11/26/2017 9:30a [facility] Dermatology Jan Wilcox, L23.9 Allergic contact dermatitis, unspecified cause Office Visit 11/24/2017 8:20a [facility] Dermatology Jan Wilcox L23.9 Allergic contact dermatitis, unspecified cause Office Visit 11/04/2017 11:00a Orthopedic Ludwig M76.61 Achilles Services Of Nicholas Brandon tendinitis, right C.M.A. 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 radiculopathy, lumbosacral region M51.16 Intervertebral disc disorders w radiculopathy, lumbar region N39.0 Urinary tract infection, site not specified Office Visit 04/21/2017 [facility] M54.16 Radiculopathy, 8:26a Assoc,alvaro Gunderson M.D. lumbar region Hospitalists E11.8 Type 2 diabetes mellitus with unspecified complications E66.01 Morbid (severe) obesity due to excess calories E78.5 Hyperlipidemia, unspecified Office Visit 04/20/2017 [facility] M54.16 Radiculopathy, 8:26a Assoc,alvaro Cloud N.P. lumbar region Hospitalists E11.8 Type 2 diabetes mellitus with unspecified complications E66.01 Morbid (severe) obesity due to excess calories E78.5 Hyperlipidemia, unspecified Office Visit 02/24/2017 Orthopedic [place] M54.16 Radiculopathy, 2:45p Services Of MD Amy lumbar region C.M.A. M17.12 Unilateral primary osteoarthritis, left knee Office Visit 02/16/2017 Orthopedic [place] M17.12 Unilateral primary 2:15p Services Of MD Amy osteoarthritis, left C.M.A. knee M54.16 Radiculopathy, lumbar region Office Visit 01/11/2017 3:30p Orthopedic [place] M25.562 Pain in left Services Of Ronnell Reyes MD knee M17.12 Unilateral primary osteoarthritis, left knee R25.2 Cramp and spasm Office Visit 11/30/2016 2:45p Orthopedic [place] M25.562 Pain in left Services Of Ronnell Reyes MD knee M17.12 Unilateral primary osteoarthritis, left knee R25.2 Cramp and spasm Office Visit 11/19/2016 1:00p Orthopedic [place] S83.242A Oth tear of Services Of MD Amy medial Ronnell meniscus, current injury, left knee, init M25.562 Pain in left knee M17.12 Unilateral primary osteoarthritis, left knee Plan of Treatment 09/15/2018 - Darnell Cortes MD, FACSK80.10 Calculus of gallbladder with chronic cholecystitis without obstructionInstructions:call me if you change your mind about vguptcvK54.01 Morbid (severe) obesity due to excess caloriesFollow up:[facility] wwqejnyC29.9 Gastro-esophageal reflux disease without esophagitis
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
[2018-12-21 17:44] VITALS: BP 134/80
== END 2018-12-21 16:55 | disposition home or self-care (01) ==
LOC: ED 15:19
DX: M25.511 Pain in right shoulder (principal); M19.011 Primary osteoarthritis, right shoulder; R20.2 Paresthesia of skin; M62.81 Muscle weakness (generalized); Z88.1 Allergy status to other antibiotic agents; Z88.2 Allergy status to sulfonamides; Z91.048 Other nonmedicinal substance allergy status
CPT/HCPCS: 99282

== ENCOUNTER 2019-12-01 15:13 | Emergency (ER) | payer OTHER ==
--- OUTSIDE RECORDS SUMMARY | 2019-12-01 15:26 | XMS REPORT | Continuity of Care Document ---
:1970 External Reference #:[id number] Author Name Max Proctor MD (transmitted by agent of provider Tatyana Swanson) Address [address] [place] [address] Care Team Providers Name Role Phone Ayan Pat MD - Endocrinology, Care Team Information Mock Up Assembler [phone] Diabetes & Metabolism Problems Active Problems Provider Date Obstructive sleep apnea syndrome Skye Dang DNP, RN, SEAT COVERER-BC Onset: Inadequate sleep hygiene Skye Dang DNP, RN, SEAT COVERER-BC Onset: 09/01/2017 Gastroesophageal reflux disease Skye Dang DNP, RN, SEAT COVERER-BC Onset: 09/01 Achilles bursitis Rocky Carranza MD Onset: 03/07/2018 Tendon contracture Rocky Carranza MD Onset: 03/07/2018 Peroneal tendinitis, left leg Rocky Carranza MD Onset: 03/07/2018 Disorder of shoulder Karolina Hoskins MD Onset: 12/22/2018 Sprain of shoulder Karolina Hoskins MD Onset: 12/22/2018 Social History Type Date Description Comments Sex Unknown Tobacco Use Start: Unknown Never Smoked Cigarettes Smoking Status Reviewed: 11/16/19 Never Smoked Cigarettes ETOH Use Occasionally consumes alcohol Tobacco Use Start: Unknown Patient has never smoked Recreational Drug Use Denies Drug Use Exercise Type/Frequency Exercises regularly Allergies, Adverse Reactions, Alerts Active Allergies Reaction Severity Comments Date Cipro tacchycardia 11/19/2016 Bactrim red, flushed 11/19/2016 Ascorbic Acid / Beta Carotene / Copper Urticaria 09/01/2017 Sulfate / Selenite / Vitamin E / Zinc Oxide Tape Urticaria 09/01/2017 Benzyl Alcohol itching 09/13/2018 Propylene Glycol itching rash 09/13/2018 Chromium itching rash 09/13/2018 Medications Active Medications SIG Qnty Indications Ordering Provider Date Freestyle Bandar 14 place one sensor 2units E11.65 Max Proctor MD 2019 Day/Sensor/Flash every 14 days Monitoring System Misc Levemir 60 units twice Unknown 100Unit/ML daily Solution Metformin HCL 1 by mouth twice Unknown 1000mg a day Tablets Albuterol Sulfate 2 puffs four Unknown 2mg times a day as Tablets needed Clobetasol Propionate as directed Unknown 0.05% Ointment Pantoprazole Sodium 1 by mouth every Unknown day 20mg Tablets DR Ciclopirox as directed Unknown 8% Solution Humalog Kwikpen SSC 3-10 untis Unknown 100Unit/ML Solution Pen-Inject Nystatin apply to affected Unknown 388204Prvb/GM area twice daily Ointment Ibuprofen 200 as needed Unknown Medications Administered in Office Medication SIG Qnty Indications Ordering Provider Date Triamcinolone (Kenalog) Karolina Hoskins MD 12/22/2018 Injection Depomedrol 40MG Hamlet Reyes MD 11/19/2016 Injection Immunizations Description No Information Available Vital Signs Date Vital Result Comment 11/16/2019 11:18am Height 68 inches 5'8" Weight 312.00 lb w/ shoes Heart Rate 76 /min BP Systolic Sitting 156 mmHg BP Diastolic Sitting 96 mmHg BMI (Body Mass Index) 47.4 kg/m2 03/01/2019 2:57pm Height 68 inches 5'8" Weight 317.00 lb Heart Rate 78 /min BP Systolic 122 mmHg BP Diastolic 72 mmHg O2 % BldC Oximetry 96 % BMI (Body Mass Index) 48.2 kg/m2 Results Description No Information Available Procedures Date Code Description Status 08/17/2019 41974569 Mammogram Completed 05/24/2017 78171018 Mammogram Completed Medical Devices Description No Information Available Encounters Description No Information Available Assessments Date Code Description Provider 11/16/2019 E11.65 Type 2 diabetes mellitus with hyperglycemia Max Proctor MD 11/16/2019 Z68.42 Body mass index (BMI) 45.0-49.9, adult Max Proctor MD Plan of Treatment Future Appointment(s):02/21/2020 9:20 am - Max Proctor MD at [facility]11/16/2019 - Max Proctor MDE11.65 Type 2 diabetes mellitus with hyperglycemiaNew Medication:Freestyle Bandar 14 Day/Sensor/Flash Monitoring System - place one sensor every 14 daysReferral:Cassy Clayton MD , Pulmonary DiseasesFollow up:FebruaryInstructions:1. Reduce Levemir to 50 units twice daily. 2. Increase Humalog to 14 units with meals. 3. Start using Freestyle Bandar sensor. 4. Reduce or eliminate carbohydrates in your diet. 5. Schedule an appointment for sleep apnea evaluation. 6. Continue metformin. 7. Blood tests today.Z68.42 Body mass index (BMI) 45.0-49.9, adult Functional Status Description No Information Available Mental Status Description No Information Available Referrals Refer to Dr Reason for Referral Status Appt Date Cassy Clayton MD S[facility] [address] [place] [address] [phone] [facility] Therapy Urinary incontinence [address] [place] [address] [phone] [facility] Physical Therapy [address] [place] [address] [phone]
[2019-12-01] MEDS ORDERED: Albuterol/Ipratropium NEB.SOL* Albuterol 2.5 MG/Ipratropium 0.5 MG 3 ML INH ONE (15:48)
[2019-12-01] MEDS ORDERED: Dexamethasone TAB* 4 MG PO ONE (15:49)
[2019-12-01 16:06] LABS: Influenza A Molecular NEGATIVE (Negative); Influenza B Molecular NEGATIVE (Negative)
--- NOTE | 2019-12-01 16:11 | ED ---
Respiratory - HPI Summary HPI Summary: 49-year-old female presents with cough for the past couple days. She states that she been getting more and more short of breath. Has history asthma. She states that she has had fevers and chills. Her is also sick. She denies any abdominal pain. No nausea or vomiting. No chest pain. She admits to occasional sore throat. - History of Current Complaint Chief Complaint: EDUpperRespComplaint Stated Complaint: COUGH, FEVER Time Seen by Provider: 12/01/19 15:38 Pain Intensity: 5 Sputum Amount: None - Allergy/Home Medications Allergies/Adverse Reactions: Allergies Allergy/AdvReac Type Severity Reaction Status Date / Time Adhesive Tape Allergy Swelling Verified 12/01/19 15:21 ciprofloxacin [From Cipro] Allergy Palpitation Verified 12/01/19 15:21 s sulfamethoxazole Allergy Palpitation Verified 12/01/19 15:21 [From Bactrim] s trimethoprim [From Bactrim] Allergy Palpitation Verified 12/01/19 15:21 s PMH/Surg Hx/FS Hx/Imm Hx Endocrine/Hematology History: Reports: Hx Diabetes Cardiovascular History: Denies: Hx Hypertension, Hx Pacemaker/ICD Respiratory History: Reports: Hx Asthma, Hx Pneumonia, Hx Sleep Apnea - CPAP, Other Respiratory Problems/Disorders - SOB at times, maybe asthma - no dx GI History: Reports: Hx Gastroesophageal Reflux Disease History: Reports: Other Problems/Disorders - incontinence at times, bladder mesh surgery Denies: Hx Renal Disease Musculoskeletal History: Reports: Hx Arthritis, Hx Back Problems, Hx Orthopedic Injury Sensory History: Reports: Hx Contacts or Glasses Denies: Hx Hearing Aid Opthamlomology History: Reports: Hx Contacts or Glasses Neurological History: Reports: Hx Nerve Disease - 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 LEFT ANKLE SURGERY - reconstruction, achilles repair 2006. LAPRASCOPIC FOR ENDOMETRIOSIS 1995. BLADDER SURGERY WITH MESH 1998. RT FOOT - FOR HAMMERTOE surgery - Immunization History Date of Tetanus Vaccine: UTD Date of Influenza Vaccine: none Infectious Disease History: No Infectious Disease History: Denies: Traveled Outside the [place] in Last 30 Days - Family History Known Family History: Positive: Diabetes Negative: Cardiac Disease, Hypertension - Social History Alcohol Use: Rare Hx Substance Use: No Substance Use Type: Reports: None Hx Tobacco Use: No Smoking Status (MU): Never Smoked Tobacco Review of Systems Positive: Fever, Chills Negative: Chest Pain Positive: Shortness Of Breath, Cough Negative: Abdominal Pain All Other Systems Reviewed And Are Negative: Yes Physical Exam Triage Information Reviewed: Yes Vital Signs On Initial Exam: Initial Vitals Temp Pulse Resp BP Pulse Ox 100.0 F 87 20 148/88 95 12/01/19 15:16 12/01/19 15:16 12/01/19 15:16 12/01/19 15:16 12/01/19 15:16 Vital Signs Reviewed: Yes Appearance: Positive: Well-Appearing Skin: Positive: Warm, Dry Head/Face: Positive: Normal Head/Face Inspection Eyes: Positive: Normal, EOMI, [place], Conjunctiva Clear ENT: Positive: Pharynx normal, Nasal drainage, TMs normal Respiratory/Lung Sounds: Positive: Breath Sounds Present, Wheezes Cardiovascular: Positive: Normal, RRR Abdomen Description: Positive: Nontender, Soft Bowel Sounds: Positive: Present Musculoskeletal: Positive: Normal Neurological: Positive: Normal Procedures - Sedation Patient Received Moderate/Deep Sedation with Procedure: No Diagnostics - Vital Signs Vital Signs Temp Pulse Resp BP Pulse Ox 12/01/19 16:05 18 12/01/19 15:16 100.0 F 87 20 148/88 95 - Laboratory Lab Results: Lab Results 12/01/19 Range/Units 15:20 Influenza A (Rapid) Negative (Negative) Influenza B (Rapid) Negative (Negative) Lab Statement: Any lab studies that have been ordered have been reviewed, and results considered in the medical decision making process. Re-Evaluation - Re-Evaluation First Eval Re-Evaluation Time: 16:49 Change: Improved Comment: lungs CTA Disposition - Course Course Of Treatment: 49-year-old female presents with cough for the past couple days. She states that she been getting more and more short of breath. Has history asthma. She states that she has had fevers and chills. Her is also sick. She denies any abdominal pain. No nausea or vomiting. No chest pain. She admits to occasional sore throat. On exam wheezes noted. Gave breathing treatment and Decadron with improvement. Afterwards lungs are clear to auscultation. Flu is negative. Will treat as bronchitis with albuterol and prednisone. Told sugars will increase as is diabetic. told follow up with primary. Patient understands and agrees the plan. - Differential Dx - Cardiopulmonary Differential Diagnoses - Cardiopulmonary: Bronchitis, Influenza, Lower Resp Infection - Diagnoses Provider Diagnoses: Asthma, Bronchitis Discharge ED - Sign-Out/Discharge Documenting (check all that apply): Patient Departure - Discharge Plan Condition: Good Disposition: HOME Prescriptions: Albuterol 2.5MG/3ML (0.083%)* [Ventolin 2.5 MG/3 ML NEB.VIDA*] 2.5 mg INH Q6H # 20 neb.vida Albuterol HFA INHALER* [Ventolin HFA Inhaler*] 2 puff INH Q4H PRN #1 mdi PRN Reason: Sob/Wheezing Benzonatate CAP* [Tessalon 100 MG CAP*] 100 mg PO TID PRN #21 cap PRN Reason: Cough predniSONE 50 mg TAB [Deltasone 50 mg TAB] 50 mg PO DAILY #4 tab Patient Education Materials: Acute Bronchitis (ED) Forms: *Work Release Referrals: Susana Barkley NP [Primary Care Provider] - Additional Instructions: Use Tessalon three times a day for cough Use inhaler one puff every 4 hours for cough as needed Take steroid once a day for 4 days Use saline in the nose Follow up with primary care physician in 5 days Return to ED if develop any new or worsening symptoms - Billing Disposition and Condition Condition: GOOD Disposition: Home
[2019-12-01] MEDS ORDERED: Acetaminophen TAB* 325 MG PO ONE (16:49)
[2019-12-01 17:06] VITALS: BP 149/97
== END 2019-12-01 17:04 | disposition home or self-care (01) ==
LOC: ED 15:13
DX: J45.909 Unspecified asthma, uncomplicated (principal); E11.9 Type 2 diabetes mellitus without complications; K21.9 Gastro-esophageal reflux disease without esophagitis; Z90.710 Acquired absence of both cervix and uterus; Z88.1 Allergy status to other antibiotic agents; Z88.2 Allergy status to sulfonamides
CPT/HCPCS: 99282; A9270-GY; J8540

== ENCOUNTER 2021-12-22 11:46 | Inpatient (IN) ==
[2021-12-22] MEDS ORDERED: Lactated Ringers 1000 ml BAG 1,000 ML IV ONE (13:08)
[2021-12-22 13:32] LABS: ABS Eosinophils 0.3 10^3/ul (0-0.6); ABS Lymphocytes 1.7 10^3/ul (1.0-4.8); ABS Monocytes 0.3 10^3/ul (0-0.8); ABS Neutrophils 4.2 10^3/ul (1.5-7.7); Eosinophil % 4.8 %; Hematocrit 42 % (35-47); Hemoglobin 13.9 g/dL (12.0-16.0); Lymphocyte % 26.1 %; Mean Corpuscular HGB Conc 33 g/dL (31-36); Mean Corpuscular Hemoglobin 30 pg (27-31); Mean Corpuscular Volume 91 fL (80-97); Nucleated Red Blood Cells % 0.1; Platelet Count 198 10^3/uL (150-450); Red Blood Count 4.57 10^6 /uL (3.70-4.87); Red Cell Distribution Width 13 % (10-15); White Blood Count 6.5 10^3/uL (3.5-10.8)
[2021-12-22 13:55] LABS: Albumin 3.9 g/dL (3.2-5.2); Albumin/Globulin Ratio 1.4 (1-3); C Reactive Protein 5.35 mg/L (<8.01); Calcium 9.2 mg/dL (8.6-10.3); Globulin 2.7 g/dL (2-4); Potassium 4.1 mmol/L (3.5-5.0); Total Bilirubin 0.6 mg/dL (0.2-1.0); Total Protein 6.6 g/dL (6.4-8.9); eGFR CKD-EPI 81.2 (>60)
[2021-12-22 13:59] LABS: HCG Pregnancy 2.18 mIU/mL
[2021-12-22 15:51] LABS: Erythrocyte Sed Rate 20 mm/Hr (0-29)
[2021-12-22] MEDS ORDERED: Magnesium Hydroxide LIQ 30 ML UDC PO PRN (18:00)
[2021-12-22] MEDS ORDERED: Polyethylene Glycol 3350 17 GM PACKET PO PRN (18:00)
[2021-12-22] MEDS ORDERED: Senna TAB 8.6 mg TAB PO PRN (18:00)
[2021-12-22] MEDS ORDERED: Albuterol HFA INHALER 8 gm MDI INH PRN (18:21)
[2021-12-22] MEDS: Enoxaparin 40 MG/0.4 ML SYR SUBCUT SCH (18:55)
[2021-12-22] MEDS ORDERED: Dextrose 50% Syringe 50 ml 25 GM/50 ML SYRINGE IV PUSH PRN (21:11)
[2021-12-22] MEDS: Magnesium Hydroxide LIQ 30 ML UDC PO SCH (22:37)
[2021-12-22] MEDS: Insulin GLARGINE 100 un/ml 10 ml VIAL SUBCUT SCH (22:37)
[2021-12-22] MEDS: Morphine 2 MG/ML SYRINGE IV PRN (23:49)
[2021-12-23] MEDS: Magnesium Hydroxide LIQ 30 ML UDC PO SCH ×2 (08:03→20:02)
[2021-12-23] MEDS ORDERED: Dextrose 50% Syringe 50 ml 25 GM/50 ML SYRINGE IV PUSH PRN (08:45)
[2021-12-23] MEDS: Morphine 2 MG/ML SYRINGE IV PRN (15:54)
[2021-12-23] MEDS: Enoxaparin 40 MG/0.4 ML SYR SUBCUT SCH (20:02)
[2021-12-23] MEDS: Insulin GLARGINE 100 un/ml 10 ml VIAL SUBCUT SCH (20:05)
[2021-12-24] MEDS: Morphine 2 MG/ML SYRINGE IV PRN ×2 (00:54→13:45)
[2021-12-24 06:42] LABS: Calcium 8.8 mg/dL (8.6-10.3); Potassium 3.9 mmol/L (3.5-5.0); eGFR CKD-EPI 74.9 (>60)
[2021-12-24] MEDS: Magnesium Hydroxide LIQ 30 ML UDC PO SCH ×2 (09:27→20:28)
[2021-12-24] MEDS ORDERED: Lactulose 30 ml UDC PO ONE (15:56)
[2021-12-24] MEDS: Polyethylene Glycol 3350 17 GM PACKET PO SCH (20:28)
[2021-12-24] MEDS: Enoxaparin 40 MG/0.4 ML SYR SUBCUT SCH (20:30)
[2021-12-24] MEDS: Insulin GLARGINE 100 un/ml 10 ml VIAL SUBCUT SCH (20:30)
[2021-12-24] MEDS ORDERED: oxyCODONE SR 20 mg TAB PO ONE (21:06)
[2021-12-24] MEDS ORDERED: Senna TAB 8.6 mg TAB PO ONE (21:11)
[2021-12-25] MEDS: Polyethylene Glycol 3350 17 GM PACKET PO SCH ×2 (08:17→21:10)
[2021-12-25] MEDS: Magnesium Hydroxide LIQ 30 ML UDC PO SCH ×2 (08:17→21:10)
[2021-12-25] MEDS: oxyCODONE SR 20 mg TAB PO SCH ×2 (08:20→21:26)
[2021-12-25] MEDS: Senna TAB 8.6 mg TAB PO SCH (21:25)
[2021-12-25] MEDS: Insulin GLARGINE 100 un/ml 10 ml VIAL SUBCUT SCH (21:27)
[2021-12-26] MEDS: oxyCODONE SR 20 mg TAB PO SCH ×2 (08:50→21:16)
[2021-12-26] MEDS: Polyethylene Glycol 3350 17 GM PACKET PO SCH ×2 (08:52→21:17)
[2021-12-26] MEDS ORDERED: Buffered Lidocaine 1% SYRIN 1 ml INTRADERM ONE (13:36)
[2021-12-26] MEDS ORDERED: Iohexol 300 (CONTRAST) 10 ML SDV ONE (13:36)
[2021-12-26] MEDS ORDERED: Lidocaine 1% VIAL 10 MG/ML VIAL ONE (13:36)
[2021-12-26] MEDS: Senna TAB 8.6 mg TAB PO SCH (21:35)
[2021-12-26] MEDS: Insulin GLARGINE 100 un/ml 10 ml VIAL SUBCUT SCH (21:37)
[2021-12-27] MEDS: Polyethylene Glycol 3350 17 GM PACKET PO SCH (09:09)
[2021-12-27] MEDS: oxyCODONE SR 20 mg TAB PO SCH (09:11)
[2021-12-27 11:19] VITALS: BP 110/69
== END 2021-12-27 16:40 | disposition home or self-care (01) | DRG 347 ==
LOC: ED 11:46 → MED 23:30 → INTOOBSV 23:30 → SUATTDRO 23:30
PROVIDERS: ADMIT Internal Medicine; ATTEND Internal Medicine